=== PATIENT | female | born 1955 | race Caucasian/White ===

== ENCOUNTER → 2024-07-05 06:21 | Day surgery (SDC) | payer OTHER, SELFPAY | LOC: GI 06:21 | PROVIDERS: ATTENDING PHYSICIAN Surgery | DX: Z12.11 Encounter for screening for malignant neoplasm of colon (principal); D12.3 Benign neoplasm of transverse colon; K57.30 Diverticulosis of large intestine without perforation or abscess without bleeding; Z86.0100 Personal history of colon polyps, unspecified | CPT/HCPCS: 45380; 88305 ==